=== PATIENT | male | born 1950 | race Caucasian/White ===

== ENCOUNTER 2023-06-26 11:00 | Inpatient (IN) | payer BC, MEDICARE ==
[2023-06-26] MEDS ORDERED: SODIUM CHLORIDE 0.9% 1,000 ML IV ONE (12:08)
[2023-06-26] MEDS ORDERED: ALPRAZolam 0.5 MG TAB PO PRN (12:41)
[2023-06-26] MEDS ORDERED: ASPIRIN 325 MG TAB PO STA (12:41)
[2023-06-26] MEDS ORDERED: NITROGLYCERIN SL TABS 0.4 MG TAB SUBLINGUAL PRN (12:41)
[2023-06-26] MEDS ORDERED: ALPRAZolam 0.25 MG TAB PO PRN ×2 (12:41→14:25)
[2023-06-26] MEDS ORDERED: SODIUM CHLORIDE 0.9% 1,000 ML in EMPTY BAG 1 BAG IV SCH (12:45)
[2023-06-26] MEDS ORDERED: HEPARIN SODIUM 1,000 UN/ML (10ML VL) ONE (12:51)
[2023-06-26] MEDS ORDERED: fentaNYL (PF) 50 MCG/ML 2 ML AMP ONE (12:51)
[2023-06-26] MEDS ORDERED: VERAPAMIL 2.5 MG/ML 2 ML AMP ONE (12:54)
[2023-06-26] MEDS: MIDAZOLAM 2 MG/2 ML VIAL IVP ONE ×2 (13:05→13:22)
[2023-06-26] MEDS: fentaNYL (PF) 50 MCG/ML 2 ML AMP IVP ONE ×2 (13:05→13:22)
[2023-06-26] MEDS ORDERED: LIDOCAINE 1% INJ 10MG/ML (5 ML VIAL-PF) SQ ONE (13:13)
[2023-06-26] MEDS ORDERED: VERAPAMIL SYRINGE (5 MG/10 ML) INTRAARTER ONE (13:15)
[2023-06-26] MEDS: HEPARIN SODIUM 1,000 UN/ML (10ML VL) IVP ONE ×3 (13:17→13:43)
[2023-06-26] MEDS ORDERED: TICAGRELOR 90 MG TAB ONE (13:27)
[2023-06-26] MEDS ORDERED: TICAGRELOR 90 MG TAB PO ONE (13:35)
[2023-06-26] MEDS ORDERED: IOPAMIDOL-370 100ML BTL INJ ONE ×2 (13:41→13:52)
[2023-06-26] MEDS ORDERED: ATROPINE SULFATE 0.1 MG/ML 10ML SYRINGE IV PRN (14:28)
[2023-06-26] MEDS ORDERED: RX INFO: IV CONTRAST WAS GIVEN 1 EACH MISC MISCELLANE PRN (14:28)
[2023-06-26] MEDS ORDERED: MAG HYDROX/AL HYDROX/SIMETH 30 ML CUP PO PRN (14:28)
[2023-06-26] MEDS ORDERED: ZOLPIDEM 5 MG TAB PO PRN (14:28)
[2023-06-26] MEDS ORDERED: BRIMONIDINE TARTRATE 0.2% DROPS 5 ML BTL BOTH EYES SCH (16:00)
[2023-06-26] MEDS ORDERED: traMADol 50 MG TAB PO PRN (16:50)
[2023-06-26] MEDS: BRIMONIDINE TARTRATE 0.2% DROPS 5 ML BTL BOTH EYES SCH (20:02)
[2023-06-26] MEDS: TICAGRELOR 90 MG TAB PO SCH (20:03)
--- NOTE | 2023-06-26 20:11 | P.PRCINT ---
Percutaneous Coronary Int. - Percutaneous Coronary Intervention Percutaneous Coronary Intervention: PROCEDURES PERFORMED: Left coronary angiography, intracoronary nitroglycerin, PCI proximal LAD with a 3.5 x 23mm Xience SUSHMA, post dilated with a 4.0 NC balloon, IVUS LAD INDICATION: Unstable angina, abnormal EKG HPI: Patient was admitted to [facility] with chest pain and underwent diagnostic LHC from a right radial approach showing 99% LAD as well as long area of PDA disease. He was hesitant about any bypass as well as initially any PCI however after discussion of risks and benefits, he was agreeable to PCI LAD. CONSENT:I have discussed the risks, benefits and alternative therapies for the above-mentioned procedure and for both sedation/analgesia as well as necessary blood product administration, if indicated, as they pertain to this patient. The patient has indicated understanding and acceptance of the risks and procedures discussed. PROCEDURE: After the risks, benefits and alternatives of the above mentioned procedure explained in detail with the patient, informed consent was obtained. Patient was taken to the catheterization lab and prepped and draped in usual fashion. 1% lidocaine was used to anesthetize the left radial artery. A 6- Moldovan sheath was placed in the left radial artery using modified Seldinger technique. The decision was made to perform PCI of the LAD. A 6Fr CLS 3.5 guide catheter was used to engage the left main. A 0.014 BMW wire was advanced into the distal LAD. Predilation was performed with a 2.5 x 12 then 3.0 x 12 NC balloon. IVUS was performed which showed diffuse disease with reference vessel distally 3.25- 3.5 however diffuse heavy calcification with very small landing zone of "normal" area. Therefore the decision was made to place a 3.5 x 23mm Xience SUSHMA from the origin to proximal LAD. The proximal portion was post dilated with a 4.0 NC balloon. Repeat IVUS showed excellent stent expansion, no dissection. Final angiograms were performed. Preintervention there was 99% stenosis with JASMIN 2 flow and post intervention there was 0% stenosis and JASMIN 3 flow. The left radial sheath was removed and a TR band was placed with hemostasis achieved. The patient tolerated the procedure well. Patient was transported back to the post catheterization holding area in stable condition. Conscious Sedation: Patient was monitored under the direct supervision of myself for conscious sedation using Versed and fentanyl for a total duration of 34 minutes HEMODYNAMICS: Aorta: 127/67 SELECTIVE CORONARY ARTERIOGRAPHY: LEFT MAIN: The left main is a large caliber vessel which trifurcates into the LAD, ramus and circumflex. There is no significant stenosis. LEFT ANTERIOR DESCENDING CORONARY ARTERY: LAD is a large caliber vessel which wraps around to the apex. There is a proximal LAD 99% stenosis followed by diffuse 30-50% stenosis of most of the remainder of the vessel. RAMUS INTERMEDIUS: The ramus is a small caliber vessel without significant stenosis. LEFT CIRCUMFLEX CORONARY ARTERY: Left circumflex is a moderate caliber vessel. There is mild 30-40% stenosis of the proximal and mid circumflex. RIGHT CORONARY ARTERY: The right coronary artery was not imaged however known to have 60-70% proximal RCA stenosis and 95% PDA stenosis. FINAL IMPRESSION: 1. CAD as described above including 99% proximal LAD, 30-50% mid LAD, 30-40% circumflex, 60-70% proximal RCA and 95% PDA stenosis 2. S/p PCI proximal LAD with a 3.5 x 23mm Xience SUSHMA, post dilated with a 4.0 NC balloon PLAN: 1. Aggressive risk factor modification per most recent ACC/AHA guidelines. 2. Continue dual antiplatelets for 12 months with aspirin and Brillinta 3. If still having angina type symptoms, may consider PCI PDA and further functional assessment of proximal RCA.
[2023-06-26] MEDS ORDERED: LATANOPROST 0.005% OPHTH DROPS 2.5 ML BTL BOTH EYES SCH (21:00)
[2023-06-26] MEDS ORDERED: traMADol 50 MG TAB PO SCH (21:00)
[2023-06-27] MEDS ORDERED: PANTOPRAZOLE 40 MG TABLET PO SCH (07:30)
[2023-06-27 07:58] LABS: Basophils % (A) 0 %; Eosinophils # (A) 0.5 k/uL (0-0.7); Eosinophils % (A) 5 %; HCT 44.6 % (39.0-53.0); HGB 15.1 gm/dL (13.0-17.5); Lymphocytes # (A) 1.1 k/uL (1.0-4.8); Lymphocytes % (A) 12 %; MCH 31.1 pg (25.0-35.0); MCHC 33.9 g/dL (31.0-37.0); Mean Platelet Volume 7.5; Monocytes # (A) 0.6 k/uL (0-1.0); Monocytes % (A) 7 %; Neutrophils # (A) 6.6 k/uL (1.3-7.7); Neutrophils % (A) 74 %; Platelet Count 172 k/uL (150-450); RBC 4.84 m/uL (4.30-5.90); RDW 11.9 % (11.5-15.5)
[2023-06-27 08:00] LABS: African American GFR (CKD) >90 (>60 ml/min/1.73 sqM); Anion Gap 7 mmol/L; Blood Urea Nitrogen 13 mg/dL (9-20); Calcium 9.3 mg/dL (8.4-10.2); Carbon Dioxide 26 mmol/L (22-30); Chloride 107 mmol/L (98-107); Glucose 99 mg/dL (74-99); Non-African American GFR(CKD) 85 (>60 ml/min/1.73 sqM); Potassium 4.1 mmol/L (3.5-5.1); Sodium 140 mmol/L (137-145)
[2023-06-27] MEDS: TICAGRELOR 90 MG TAB PO SCH (08:21)
[2023-06-27] MEDS: BRIMONIDINE TARTRATE 0.2% DROPS 5 ML BTL BOTH EYES SCH (08:22)
[2023-06-27 08:36] VITALS: RESP 20; TEMP 98.1
[2023-06-27] MEDS ORDERED: LATANOPROST 0.005% OPHTH DROPS 2.5 ML BTL RIGHT EYE SCH (09:00)
[2023-06-27] MEDS ORDERED: LOSARTAN 25 MG TAB PO SCH (09:00)
[2023-06-27] MEDS ORDERED: METOPROLOL SUCCINATE (ER) 25 MG TAB.ER.24H PO SCH (09:00)
[2023-06-27] MEDS ORDERED: FENOFIBRATE 160 MG TAB PO SCH (09:00)
[2023-06-27] MEDS ORDERED: TAMSULOSIN 0.4 MG CAP.ER.24H PO SCH (09:00)
[2023-06-27] MEDS ORDERED: ASPIRIN 81 MG PO SCH (09:00)
[2023-06-27] MEDS ORDERED: MELOXICAM 7.5 MG TAB PO SCH (09:00)
[2023-06-27 11:25] VITALS: BP 141/77; PULSE 63
--- NOTE | 2023-06-27 12:53 | P.DS ---
Providers Date of admission: 06/26/23 11:10 Attending physician: Song Galindo DO Consults: 06/26/23 14:28 Consult Physician Routine Consulting Provider: [facility] Consult Reason/Comments: Post Interventional Patient Do you want consulting provider notified?: Already Contacted Primary care physician: Song Galindo DO Hospital Course: This is a 73-year-old male who underwent stenting of the LAD by Dr. Galindo on 06/26/2023. Echocardiogram completed revealing ejection fraction 55-60%. The patient is doing well postprocedure with no immediate complications. He remains on dual antiplatelet therapy and high intensity statin. Patient was deemed stable for discharge home today from a cardiac standpoint. Please see EMR for further hospital course details. Discharge Diagnosis 1. Chest pain, status post cardiac catheterization with PCI to LAD Nurse practitioner note has been reviewed by physician. Signing provider agrees with the documented findings, assessment, and plan of care. Plan - Discharge Summary Discharge Rx Participant: No New Discharge Prescriptions: New Ticagrelor [Brilinta] 90 mg PO BID #180 tab Metoprolol Succinate (ER) [Toprol XL] 25 mg PO DAILY #90 tab Atorvastatin [Lipitor] 80 mg PO HS #90 tab Nitroglycerin Sl Tabs [Nitrostat] 0.4 mg SUBLINGUAL Q5M PRN #100 tab PRN Reason: Chest Pain Continue Losartan [Cozaar] 25 mg PO DAILY Fenofibrate 160 mg PO MOWEFR Aspirin EC [Ecotrin Low Dose] 81 mg PO DAILY No Action traMADol HCl [Ultram] 50 mg PO BID PRN PRN Reason: Pain rOPINIRole HCL [Requip] 1 mg PO BID@1800,2100 Brimonidine Tartrate [Alphagan P 0.15% Ophth Soln] 1 drop BOTH EYES BID Latanoprost [Latanoprost 0.005%] 1 drop BOTH EYES HS ALPRAZolam [Xanax] 0.25 mg PO BID PRN PRN Reason: Anxiety Tamsulosin [Flomax] 0.4 mg PO DAILY Omeprazole 20 mg PO DAILY Tacrolimus [Tacrolimus 0.1%] 1 applic TOPICAL BID Celecoxib [CeleBREX] 200 mg PO DAILY Discharge Medication List ALPRAZolam [Xanax] 0.25 mg PO BID PRN 06/26/23 [History] Aspirin EC [Ecotrin Low Dose] 81 mg PO DAILY 06/26/23 [History] Brimonidine Tartrate [Alphagan P 0.15% Ophth Soln] 1 drop BOTH EYES BID 06/26/23 [History] Celecoxib [CeleBREX] 200 mg PO DAILY 06/26/23 [History] Fenofibrate 160 mg PO MOWEFR 06/26/23 [History] Latanoprost [Latanoprost 0.005%] 1 drop BOTH EYES HS 06/26/23 [History] Losartan [Cozaar] 25 mg PO DAILY 06/26/23 [History] Omeprazole 20 mg PO DAILY 06/26/23 [History] Tacrolimus [Tacrolimus 0.1%] 1 applic TOPICAL BID 06/26/23 [History] Tamsulosin [Flomax] 0.4 mg PO DAILY 06/26/23 [History] rOPINIRole HCL [Requip] 1 mg PO BID@1800,2100 06/26/23 [History] traMADol HCl [Ultram] 50 mg PO BID PRN 06/26/23 [History] Atorvastatin [Lipitor] 80 mg PO HS #90 tab 06/27/23 [Rx] Metoprolol Succinate (ER) [Toprol XL] 25 mg PO DAILY #90 tab 06/27/23 [Rx] Nitroglycerin Sl Tabs [Nitrostat] 0.4 mg SUBLINGUAL Q5M PRN #100 tab 06/27/23 [Rx] Ticagrelor [Brilinta] 90 mg PO BID #180 tab 06/27/23 [Rx] Follow up Appointment(s)/Referral(s): Vito Raza MD [Medical Doctor] - 07/04/23 2:30 pm Patient Instructions/Handouts: Heart Catheterization (DC) Discharge Disposition: HOME WITH HOME HEALTH SERVICES
[2023-06-28] MEDS ORDERED: FENOFIBRATE 160 MG TAB PO SCH (09:00)
== END 2023-06-27 11:58 | disposition home health service (06) | DRG 247 ==
LOC: 3SCARD 11:10
PROVIDERS: ADMIT Internal Medicine; ATTEND Internal Medicine
PROC: 027034Z Dilation of Coronary Artery, One Artery with Drug-eluting Intraluminal Device, Percutaneous Approach (ICD-10-PCS; principal; 2023-06-26 17:25)
PROC: 4A023N7 Measurement of Cardiac Sampling and Pressure, Left Heart, Percutaneous Approach (ICD-10-PCS; principal; 2023-06-26 17:25)
PROC: B2111ZZ Fluoroscopy of Multiple Coronary Arteries using Low Osmolar Contrast (ICD-10-PCS; principal; 2023-06-26 17:25)
DX: I25.10 Atherosclerotic heart disease of native coronary artery without angina pectoris (principal); I25.110 Atherosclerotic heart disease of native coronary artery with unstable angina pectoris; I10 Essential (primary) hypertension; E78.5 Hyperlipidemia, unspecified; G47.30 Sleep apnea, unspecified; Z79.82 Long term (current) use of aspirin; Z79.899 Other long term (current) drug therapy; Z87.01 Personal history of pneumonia (recurrent); G56.03 Carpal tunnel syndrome, bilateral upper limbs; H40.9 Unspecified glaucoma; I25.2 Old myocardial infarction; Z87.442 Personal history of urinary calculi
CPT/HCPCS: 80048; 85025; 92978

== ENCOUNTER 2023-11-28 13:01 | Emergency (ER) | payer MEDICARE ==
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
[2023-11-28] MEDS: KETOROLAC 15 MG/ML 1 ML VIAL IM STA (13:21)
[2023-11-28 13:47] VITALS: RESP 18
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
[2023-11-28 15:26] VITALS: BP 115/73; PULSE 72; TEMP 97.6
== END 2023-11-28 15:11 | disposition home or self-care (01) ==
LOC: EC 13:01
DX: S46.001A Unspecified injury of muscle(s) and tendon(s) of the rotator cuff of right shoulder, initial encounter (principal); M66.9 Spontaneous rupture of unspecified tendon; I10 Essential (primary) hypertension; Z79.82 Long term (current) use of aspirin; Z79.899 Other long term (current) drug therapy; Z88.5 Allergy status to narcotic agent; V89.2XXA Person injured in unspecified motor-vehicle accident, traffic, initial encounter; Y92.410 Unspecified street and highway as the place of occurrence of the external cause
CPT/HCPCS: 73030; 99283; 96372; J1885

== ENCOUNTER 2023-12-10 16:38 | Emergency (ER) | payer MEDICARE ==
--- NOTE | 2023-12-10 17:21 | ED ---
Recheck HPI - General Chief Complaint: Recheck/Abnormal Lab/Rx Stated Complaint: ABD Pain, Weakness, Constipation Time Seen by Provider: 12/10/23 16:47 Source: patient, RN notes reviewed, old records reviewed Mode of arrival: wheelchair Limitations: no limitations - History of Present Illness Initial Comments: This is a 73-year-old male to the ER for evaluation of severe pain generalized body aches and pains abdominal pain back pain inability urinate. Patient is unable provide history secondary to levels of discomfort patient is in severe distress on arrival in the ER MD Complaint: abnormal lab Returns Today for: persistent/worsening pain related to initial visit Symptoms Since Prior Visit: worsening pain Associated Symptoms: none Treatments Prior to Arrival: Given Pain Meds on, other - Related Data Home Medications Medication Instructions Recorded Confirmed ALPRAZolam [Xanax] 0.25 mg PO BID PRN 06/26/23 06/26/23 Aspirin EC [Ecotrin Low Dose] 81 mg PO DAILY 06/26/23 06/26/23 Brimonidine Tartrate [Alphagan P 1 drop BOTH EYES BID 06/26/23 06/26/23 0.15% Ophth Soln] Celecoxib [CeleBREX] 200 mg PO DAILY 06/26/23 06/26/23 Fenofibrate 160 mg PO MOWEFR 06/26/23 06/26/23 Latanoprost [Latanoprost 0.005%] 1 drop BOTH EYES HS 06/26/23 06/26/23 Losartan [Cozaar] 25 mg PO DAILY 06/26/23 06/26/23 Omeprazole 20 mg PO DAILY 06/26/23 06/26/23 Tacrolimus [Tacrolimus 0.1%] 1 applic TOPICAL BID 06/26/23 06/26/23 Tamsulosin [Flomax] 0.4 mg PO DAILY 06/26/23 06/26/23 rOPINIRole HCL [Requip] 1 mg PO BID@1800,2100 06/26/23 06/26/23 traMADol HCl [Ultram] 50 mg PO BID PRN 06/26/23 06/26/23 Previous Rx's Medication Instructions Recorded Atorvastatin [Lipitor] 80 mg PO HS #90 tab 06/27/23 Metoprolol Succinate (ER) [Toprol 25 mg PO DAILY #90 tab 06/27/23 XL] Nitroglycerin Sl Tabs [Nitrostat] 0.4 mg SUBLINGUAL Q5M PRN #100 tab 06/27/23 Ticagrelor [Brilinta] 90 mg PO BID #180 tab 06/27/23 polyethylene glycoL 3350 [Miralax] 17 gm PO DAILY #14 packet 12/10/23 Allergies Allergy/AdvReac Type Severity Reaction Status Date / Time codeine AdvReac Nausea Verified 12/10/23 16:45 morphine AdvReac Nausea Verified 12/10/23 16:45 Review of Systems ROS Statement: Those systems with pertinent positive or pertinent negative responses have been documented in the HPI. ROS Other: All systems not noted in ROS Statement are negative. Past Medical History Past Medical History: Eye Disorder, Hyperlipidemia, Hypertension Additional Past Medical History / Comment(s): Tinnitis, restless leg syndrome History of Any Multi-Drug Resistant Organisms: None Reported Past Surgical History: Orthopedic Surgery Past Anesthesia/Blood Transfusion Reactions: No Reported Reaction Past Psychological History: No Psychological Hx Reported Smoking Status: Never smoker General Exam Limitations: no limitations General appearance: alert, in no apparent distress, anxious Head exam: Present: atraumatic, normocephalic, normal inspection Eye exam: Present: normal appearance, PERRL, EOMI. Absent: scleral icterus, conjunctival injection, periorbital swelling ENT exam: Present: normal exam, mucous membranes moist Neck exam: Present: normal inspection. Absent: tenderness, meningismus, lymphadenopathy Respiratory exam: Present: normal lung sounds bilaterally. Absent: respiratory distress, wheezes, rales, rhonchi, stridor Cardiovascular Exam: Present: regular rate, normal rhythm, normal heart sounds. Absent: systolic murmur, diastolic murmur, rubs, gallop, clicks GI/Abdominal exam: Present: soft, normal bowel sounds. Absent: distended, tenderness, guarding, rebound, rigid Extremities exam: Present: normal inspection, full ROM, normal capillary refill. Absent: tenderness, pedal edema, joint swelling, calf tenderness Back exam: Present: normal inspection Neurological exam: Present: alert, oriented X3, CN II-XII intact Psychiatric exam: Present: normal affect, normal mood Skin exam: Present: warm, dry, intact, normal color. Absent: rash Course Vital Signs 12/10/23 12/10/23 12/10/23 16:44 18:41 20:00 Temperature 98.2 F Pulse Rate 78 90 98 Respiratory 18 20 18 Rate Blood Pressure 161/80 130/70 132/78 O2 Sat by Pulse 97 99 98 Oximetry 12/10/23 23:59 Temperature 98.3 F Pulse Rate 93 Respiratory 18 Rate Blood Pressure 121/90 O2 Sat by Pulse 96 Oximetry - Reevaluation(s) Reevaluation #1: 12/10/23 18:24 Medical records reviewed Reevaluation #2: Patient symptoms are improved here in the ER Reevaluation #3: Patient informed of results and questions answered Reevaluation #4: Was pt. sent in by a medical professional or institution (, JONNA, [employer], urgent care, hospital, or senior living...) When possible be specific @ -no Did you speak to anyone other than the patient for history (EMS, parent, family, police, friend...)? What history was obtained from this source @ -no Did you review nursing and triage notes (agree or disagree)? Why? @ -agree Are old charts reviewed (outside hosp., previous admission, EMS record, old EKG, old radiological studies, urgent care reports/EKG's, senior living records)? Report findings @ -yes Differential Diagnosis (chest pain, altered mental status, abdominal pain women, abdominal pain men, vaginal bleeding, weakness, fever, dyspnea, syncope, headache, dizziness, GI bleed, back pain, seizure, CVA, palpatations, mental health, musculoskeletal)? @ -prior EKG interpreted by me (3pts min.). @ -yes X-rays interpreted by me (1pt min.). @ -No CT interpreted by me (1pt min.). @ -yes negative for acute disease U/S interpreted by me (1pt. min.). @ -no What testing was considered but not performed or refused? (CT, X-rays, U/S, labs)? Why? @ -none What meds were considered but not given or refused? Why? @ -none Did you discuss the management of the patient with other professionals (professionals i.e. JONNA [place], [employer], lab, RT, psych nurse, social media marketing analyst, tank charger, teacher, global safety officer, case management coordinator)? Give summary @ -no Was smoking cessation discussed for >3mins.? @ -no Was critical care preformed (if so, how long)? @ -no Were there social determinants of health that impacted care today? How? ( Homelessness, low income, unemployed, alcoholism, drug addiction, transportation, low edu. Level, literacy, decrease access to med. care, care home, rehab)? @ -none Was there de-escalation of care discussed even if they declined (Discuss DNR or withdrawal of care, Hospice)? DNR status @ -no What co-morbidities impacted this encounter? (DM, HTN, Smoking, COPD, CAD, Cancer, CVA, ARF, Chemo, Hep., AIDS, mental health diagnosis, sleep apnea, morbid obesity)? @ -none Was patient admitted / discharged? Hospital course, mention meds given and route, prescriptions, significant lab abnormalities, going to OR and other pertinent info. @ - 73 male to ER with severe constipation and rectal impaction here in the ER, patient's rectal impaction was resolved and patient can be discharged home Discharge Undiagnosed new problem with uncertain prognosis? @ -no Drug Therapy requiring intensive monitoring for toxicity (Heparin, Nitro, Insulin, Cardizem)? @ -no Were any procedures done? @ -no Diagnosis/symptom? @ -Abdominal pain with rectal impaction resolved Acute, or Chronic, or Acute on Chronic? @ -Acute Uncomplicated (without systemic symptoms) or Complicated (systemic symptoms)? @ -Complicated Side effects of treatment? @ -no Exacerbation, Progression, or Severe Exacerbation? @ -exacerbation Poses a threat to life or bodily function? How? (Chest pain, USA, VA, pneumonia, PE, COPD, DKA, ARF, appy, cholecystitis, CVA, Diverticulitis, Homicidal, Suicidal, threat to staff... and all critical care pts) @ -yes negative for acute disease Reevaluation #5: Differential Weakness: Hypoglycemia, shock, sepsis, hyponatremia, anemia, infection, VA, ETOH, adverse medicine reaction, overdose, stroke, this is not meant to be an all-inclusive list. Procedures - Rectal Disimpaction Consent Obtained: verbal consent Indication: fecal impaction Procedural Sedation: Yes Sedation/Analgesia: none Technique: manual disimpaction with gloved finger Result: significant stool output Complications: none Patient Tolerated Procedure: well Medical Decision Making - Medical Decision Making 73 male to ER with severe constipation and rectal impaction here in the ER, patient's rectal impaction was resolved and patient can be discharged home - Lab Data Result diagrams: 12/10/23 17:57 12/10/23 17:57 Lab Results 12/10/23 12/10/23 12/10/23 Range/Units 17:57 17:57 17:57 WBC 12.7 H (3.8-10.6) k/uL RBC 5.36 (4.30-5.90) m/uL Hgb 17.0 (13.0-17.5) gm/dL Hct 48.5 (39.0-53.0) % MCV 90.4 (80.0-100.0) fL MCH 31.7 (25.0-35.0) pg MCHC 35.0 (31.0-37.0) g/dL RDW 12.3 (11.5-15.5) % Plt Count 238 (150-450) k/uL MPV 8.4 Neutrophils % 78 % Lymphocytes % 12 % Monocytes % 7 % Eosinophils % 1 % Basophils % 0 % Neutrophils # 10.0 H (1.3-7.7) k/uL Lymphocytes # 1.5 (1.0-4.8) k/uL Monocytes # 0.9 (0-1.0) k/uL Eosinophils # 0.1 (0-0.7) k/uL Basophils # 0.0 (0-0.2) k/uL PT 13.0 H (10.0-12.5) sec INR 1.2 H (<1.2) APTT 26.2 (22.0-30.0) sec Sodium (137-145) mmol/L Potassium (3.5-5.1) mmol/L Chloride (98-107) mmol/L Carbon Dioxide (22-30) mmol/L Anion Gap mmol/L BUN (9-20) mg/dL Creatinine (0.66-1.25) mg/dL Est GFR (CKD-EPI)AfAm (>60 ml/min/1.73 sqM) Est GFR (CKD-EPI)NonAf (>60 ml/min/1.73 sqM) Glucose (74-99) mg/dL Lactic Ac Sepsis Rflx Plasma Lactic Acid Abdulaziz (0.7-2.0) mmol/L Calcium (8.4-10.2) mg/dL Total Bilirubin (0.2-1.3) mg/dL AST (17-59) U/L ALT (4-49) U/L Alkaline Phosphatase (38-126) U/L Total Protein (6.3-8.2) g/dL Albumin (3.5-5.0) g/dL Amylase (30-110) U/L Lipase (23-300) U/L Urine Color Colorless Urine Appearance Clear (Clear) Urine pH 8.0 (5.0-8.0) Ur Specific Jeff 1.010 (1.001-1.035) Urine Protein Negative (Negative) Urine Glucose (UA) 4+ H (Negative) Urine Ketones Negative (Negative) Urine Blood Moderate H (Negative) Urine Nitrite Negative (Negative) Urine Bilirubin Negative (Negative) Urine Urobilinogen <2.0 (<2.0) mg/dL Ur Leukocyte Esterase Negative (Negative) Urine RBC 18 H (0-5) /hpf Urine WBC 1 (0-5) /hpf 12/10/23 12/10/23 12/10/23 Range/Units 17:57 17:57 18:43 WBC (3.8-10.6) k/uL RBC (4.30-5.90) m/uL Hgb (13.0-17.5) gm/dL Hct (39.0-53.0) % MCV (80.0-100.0) fL MCH (25.0-35.0) pg MCHC (31.0-37.0) g/dL RDW (11.5-15.5) % Plt Count (150-450) k/uL MPV Neutrophils % % Lymphocytes % % Monocytes % % Eosinophils % % Basophils % % Neutrophils # (1.3-7.7) k/uL Lymphocytes # (1.0-4.8) k/uL Monocytes # (0-1.0) k/uL Eosinophils # (0-0.7) k/uL Basophils # (0-0.2) k/uL PT (10.0-12.5) sec INR (<1.2) APTT (22.0-30.0) sec Sodium 138 (137-145) mmol/L Potassium 3.8 (3.5-5.1) mmol/L Chloride 102 (98-107) mmol/L Carbon Dioxide 21 L (22-30) mmol/L Anion Gap 15 mmol/L BUN 16 (9-20) mg/dL Creatinine 0.82 (0.66-1.25) mg/dL Est GFR (CKD-EPI)AfAm >90 (>60 ml/min/1.73 sqM) Est GFR (CKD-EPI)NonAf 87 (>60 ml/min/1.73 sqM) Glucose 96 (74-99) mg/dL Lactic Ac Sepsis Rflx Y Plasma Lactic Acid Abdulaziz 4.6 H* (0.7-2.0) mmol/L Calcium 9.9 (8.4-10.2) mg/dL Total Bilirubin 1.4 H (0.2-1.3) mg/dL AST 48 (17-59) U/L ALT 39 (4-49) U/L Alkaline Phosphatase 81 (38-126) U/L Total Protein 7.2 (6.3-8.2) g/dL Albumin 4.8 (3.5-5.0) g/dL Amylase 125 H (30-110) U/L Lipase 91 (23-300) U/L Urine Color Urine Appearance (Clear) Urine pH (5.0-8.0) Ur Specific Jeff (1.001-1.035) Urine Protein (Negative) Urine Glucose (UA) (Negative) Urine Ketones (Negative) Urine Blood (Negative) Urine Nitrite (Negative) Urine Bilirubin (Negative) Urine Urobilinogen (<2.0) mg/dL Ur Leukocyte Esterase (Negative) Urine RBC (0-5) /hpf Urine WBC (0-5) /hpf 12/10/23 Range/Units 21:15 WBC (3.8-10.6) k/uL RBC (4.30-5.90) m/uL Hgb (13.0-17.5) gm/dL Hct (39.0-53.0) % MCV (80.0-100.0) fL MCH (25.0-35.0) pg MCHC (31.0-37.0) g/dL RDW (11.5-15.5) % Plt Count (150-450) k/uL MPV Neutrophils % % Lymphocytes % % Monocytes % % Eosinophils % % Basophils % % Neutrophils # (1.3-7.7) k/uL Lymphocytes # (1.0-4.8) k/uL Monocytes # (0-1.0) k/uL Eosinophils # (0-0.7) k/uL Basophils # (0-0.2) k/uL PT (10.0-12.5) sec INR (<1.2) APTT (22.0-30.0) sec Sodium (137-145) mmol/L Potassium (3.5-5.1) mmol/L Chloride (98-107) mmol/L Carbon Dioxide (22-30) mmol/L Anion Gap mmol/L BUN (9-20) mg/dL Creatinine (0.66-1.25) mg/dL Est GFR (CKD-EPI)AfAm (>60 ml/min/1.73 sqM) Est GFR (CKD-EPI)NonAf (>60 ml/min/1.73 sqM) Glucose (74-99) mg/dL Lactic Ac Sepsis Rflx Plasma Lactic Acid Abdulaziz 1.9 (0.7-2.0) mmol/L Calcium (8.4-10.2) mg/dL Total Bilirubin (0.2-1.3) mg/dL AST (17-59) U/L ALT (4-49) U/L Alkaline Phosphatase (38-126) U/L Total Protein (6.3-8.2) g/dL Albumin (3.5-5.0) g/dL Amylase (30-110) U/L Lipase (23-300) U/L Urine Color Urine Appearance (Clear) Urine pH (5.0-8.0) Ur Specific Jeff (1.001-1.035) Urine Protein (Negative) Urine Glucose (UA) (Negative) Urine Ketones (Negative) Urine Blood (Negative) Urine Nitrite (Negative) Urine Bilirubin (Negative) Urine Urobilinogen (<2.0) mg/dL Ur Leukocyte Esterase (Negative) Urine RBC (0-5) /hpf Urine WBC (0-5) /hpf - EKG Data -: EKG Interpreted by Me (EKG is sinus 91 VT 166 QRS 109 QTc 449) - Radiology Data Radiology results: report reviewed (CT abdomen pelvis is positive for rectal impaction), image reviewed Disposition Clinical Impression: Constipation, Fecal impaction Disposition: HOME SELF-CARE Condition: Fair Instructions (If sedation given, give patient instructions): Constipation (ED), Fecal Impaction (ED) Prescriptions: polyethylene glycoL 3350 [Miralax] 17 gm PO DAILY #14 packet Is patient prescribed a controlled substance at d/c from ED?: No Referrals: Tee Zaldivar MD [Primary Care Provider] - 1-2 days Time of Disposition: 23:00
[2023-12-10] MEDS: ONDANSETRON 4 MG/2 ML VIAL IVP STA (18:00)
[2023-12-10] MEDS: SODIUM CHLORIDE 0.9% 1,000 ML IV STA ×3 (18:00→20:34)
[2023-12-10] MEDS: HYDROmorphone 1 MG/ML 1 ML SYRINGE IVP STA (18:02)
[2023-12-10 18:33] LABS: Basophils % (A) 0 %; Eosinophils # (A) 0.1 k/uL (0-0.7); Eosinophils % (A) 1 %; HCT 48.5 % (39.0-53.0); Lymphocytes # (A) 1.5 k/uL (1.0-4.8); Lymphocytes % (A) 12 %; MCH 31.7 pg (25.0-35.0); MCV 90.4 fL (80.0-100.0); Mean Platelet Volume 8.4; Monocytes # (A) 0.9 k/uL (0-1.0); Monocytes % (A) 7 %; Neutrophils % (A) 78 %; Platelet Count 238 k/uL (150-450); RBC 5.36 m/uL (4.30-5.90); RDW 12.3 % (11.5-15.5); WBC 12.7 k/uL (3.8-10.6)
[2023-12-10 18:37] LABS: Appearance,Urine Clear (Clear); Bilirubin,Urine Negative (Negative); Blood,Urine Moderate (Negative); Color,Urine Colorless; Glucose,Urine (UA) 4+ (Negative); Ketones,Urine Negative (Negative); Leukocyte Esterase,Urine Negative (Negative); Nitrite,Urine Negative (Negative); Protein,Urine Negative (Negative); RBC,Urine 18 /hpf (0-5); Urobilinogen,Urine <2.0 mg/dL (<2.0); WBC,Urine 1 /hpf (0-5)
[2023-12-10 18:45] LABS: ALT 39 U/L (4-49); African American GFR (CKD) >90 (>60 ml/min/1.73 sqM); Albumin 4.8 g/dL (3.5-5.0); Amylase 125 U/L (30-110); Anion Gap 15 mmol/L; Blood Urea Nitrogen 16 mg/dL (9-20); Calcium 9.9 mg/dL (8.4-10.2); Carbon Dioxide 21 mmol/L (22-30); Chloride 102 mmol/L (98-107); Glucose 96 mg/dL (74-99); Lipase 91 U/L (23-300); Non-African American GFR(CKD) 87 (>60 ml/min/1.73 sqM); Sodium 138 mmol/L (137-145); Total Bilirubin 1.4 mg/dL (0.2-1.3); Total Protein 7.2 g/dL (6.3-8.2)
[2023-12-10 18:46] LABS: AST 48 U/L (17-59); Potassium 3.8 mmol/L (3.5-5.1)
[2023-12-10 18:47] LABS: Alkaline Phosphatase 81 U/L (38-126)
[2023-12-10 19:08] LABS: INR 1.2 (<1.2); Partial Thromboplastin Time 26.2 sec (22.0-30.0)
--- NOTE | 2023-12-10 19:33 | CT ---
EXAMINATION TYPE: CT abdomen pelvis w con CT DLP: 899.1 mGycm, Automated exposure control for dose reduction was used. DATE OF EXAM: 12/10/2023 7:14 PM COMPARISON: CT abdomen pelvis most recent from 12/11/2011 CLINICAL INDICATION:Male, 73 years old with history of abdominal pain; pain TECHNIQUE: Axial CT of the abdomen and pelvis. Sagittal and coronal reformats were created on a [employer] workstation. Contrast used:100 ml mL of Isovue 300 with IV Contrast, (none if empty) Oral contrast used: without Oral Contrast (none if empty) FINDINGS: LOWER CHEST: Unremarkable ABDOMEN LIVER: There is interval enlargement of a right hepatic lobe cyst, now measuring 10.5 cm, additional multiple hepatic cysts are stable. GALLBLADDER AND BILE DUCTS: Cholelithiasis is identified PANCREAS: Few scattered microcalcifications are identified, likely sequela of chronic disease. SPLEEN: Unremarkable. ADRENAL GLANDS: Unremarkable. KIDNEYS AND URETERS: No evidence of hydronephrosis or renal calculus. The ureters are unremarkable. Bilateral renal cysts are appreciated. PELVIS BLADDER: Decompressed with Bhandari catheter present. REPRODUCTIVE: Prostatomegaly is identified. ABDOMEN & PELVIS STOMACH AND BOWEL: Stomach and duodenum are unremarkable. Fecaloma within the patient's rectum measur ing 7 cm in transverse diameter. Mild associated rectal wall thickening is identified. Scattered colo jeramy diverticula are present. The adjacent colon is prominent measuring up to 7 cm in diameter. The ap pendix is unremarkable. PERITONEUM/RETROPERITONEUM: No evidence of pneumoperitoneum or free fluid. VASCULATURE: Mild atherosclerotic calcifications are present throughout the abdominal aorta and its b ranches. No evidence of aortic aneurysm. MUSCULOSKELETAL: No acute osseous abnormalities. Mild disc degeneration changes are present throughou t the thoracolumbar spine. LYMPH NODES: Prominent nonenlarged mesenteric lymph nodes are identified. SOFT TISSUE/ABDOMINAL WALL: Unremarkable IMPRESSION: 1. Fecaloma within the patient's rectum with associated mild rectal wall thickening. Correlate with signs/symptoms of stercoral colitis. 2. Prominent ascending colon, this can be reactive to impression #1. 3. Colonic diverticulosis. 4. Cholelithiasis. 5. Interval enlargement of a now 10.5 cm simple appearing hepatic cyst.
[2023-12-10] MEDS: SENNOSIDES-DOCUSATE SODIUM 1 EACH TAB PO STA (20:35)
[2023-12-10] MEDS: DICYCLOMINE 10 MG/ML 2 ML AMP IM STA (20:36)
[2023-12-10 21:06] VITALS: RESP 18
[2023-12-10] MEDS: LORazepam 2 MG/ML INJ IV STA (22:25)
[2023-12-10] MEDS: SODIUM CHLORIDE 0.9% 500 ML 500 ML IV STA (22:51)
[2023-12-10] MEDS: KETOROLAC 15 MG/ML 1 ML VIAL IVP STA (22:52)
[2023-12-11 00:20] VITALS: BP 121/90; PULSE 93; TEMP 98.3
== END 2023-12-11 00:05 | disposition home or self-care (01) ==
LOC: EC 16:38
DX: K56.41 Fecal impaction (principal); K57.30 Diverticulosis of large intestine without perforation or abscess without bleeding; K76.89 Other specified diseases of liver; K80.20 Calculus of gallbladder without cholecystitis without obstruction; I10 Essential (primary) hypertension; E78.5 Hyperlipidemia, unspecified; Z79.899 Other long term (current) drug therapy; Z88.5 Allergy status to narcotic agent; Z79.82 Long term (current) use of aspirin
CPT/HCPCS: 36415; 80053; 82150; 83605; 83690; 85025; 85610; 85730; 81001; 74177; 99285; 96372; 96374; 96375 ×2; 96361 ×6; J0500; J2405; J1170; J1885; Q9967; 93005

== ENCOUNTER → 2024-01-16 | Outpatient (CLI) | payer MEDICARE ==
--- NOTE | 2024-01-16 12:31 | MR ---
EXAMINATION TYPE: MR shoulder RT wo con DATE OF EXAM: 01/16/2024 COMPARISON: None HISTORY: Pain TECHNIQUE: Multiplanar, multisequence imaging of the right shoulder is performed without contrast. FINDINGS: There is no bone contusion or fracture. There is moderate to marked osteoarthritic change of the AC joint resulting in mild shoulder impingem ent There is a large glenohumeral joint effusion and there is some acromial and subdeltoid bursitis. There are chronic complete rotator cuff tears involving the infraspinatus, supraspinatus and subscapu shon tendons with retraction medially. The biceps tendon is dislocated medially but the biceps anchor is intact and there is no evidence of SLAP lesion there is marked thickening of the joint capsule IMPRESSION: 1. Chronic full-thickness rotator cuff tears with retraction medially of the infraspinatus, supraspin atus and subscapularis tendons. 2. Moderate to marked osteophytic change of the AC joint. 3. Large glenohumeral joint effusion and subacromial and subdeltoid bursitis. 4. dislocation of the biceps tendon medially. No evidence of a SLAP lesion. 5. No bone contusion or fracture.
== END | disposition home or self-care (01) ==
LOC: RADMRIMAIN 07:06
PROVIDERS: ATTEND Orthopaedic Surgery
DX: M75.121 Complete rotator cuff tear or rupture of right shoulder, not specified as traumatic (principal); S43.004A Unspecified dislocation of right shoulder joint, initial encounter; X58.XXXA Exposure to other specified factors, initial encounter

== ENCOUNTER → 2024-01-27 | Outpatient (CLI) | payer MEDICARE | END | disposition home or self-care (01) | LOC: LABPAT 11:06 | PROVIDERS: ATTEND Orthopaedic Surgery | DX: Z01.812 Encounter for preprocedural laboratory examination (principal); M75.121 Complete rotator cuff tear or rupture of right shoulder, not specified as traumatic; Z22.322 Carrier or suspected carrier of Methicillin resistant Staphylococcus aureus | CPT/HCPCS: 87070 ==

== ENCOUNTER → 2024-02-20 | Outpatient (CLI) | payer MEDICARE ==
[2024-02-20 14:24] LABS: Basophils # (A) 0.06 X 10*3/uL (0.00-0.10); Basophils % (A) 0.9 %; Eosinophils # (A) 0.56 X 10*3/uL (0.04-0.35); Eosinophils % (A) 8.5 %; HCT 47.6 % (39.6-50.0); HGB 15.7 g/dL (13.0-17.0); Lymphocytes # (A) 1.25 X 10*3/uL (0.90-5.00); MCH 30.3 pg (27.0-32.0); MCV 91.7 FL (80.0-97.0); Mean Platelet Volume 9.9 FL (9.5-12.2); Monocytes # (A) 0.57 X 10*3/uL (0.20-1.00); Monocytes % (A) 8.6 %; NRBC Per 100 WBC 0 X 10*3/uL (0.00-0.01); Neutrophils % (A) 62.2 %; Platelet Count 144 X 10*3/uL (140-440); RBC 5.19 X 10*6/uL (4.40-5.60); WBC 6.59 X 10*3/uL (4.50-10.00)
[2024-02-20 15:32] LABS: INR 1.22 sec (0.93-1.11)
[2024-02-20 15:58] LABS: Blood Urea Nitrogen 15.2 mg/dL (9.0-27.0); Calcium 9.4 mg/dL (8.7-10.3); Carbon Dioxide 25.3 mmol/L (21.6-31.8); Chloride 105 mmol/L (96-109); Glucose 111 mg/dL (70-110); Potassium 4.5 mmol/L (3.5-5.5); Sodium 143 mmol/L (135-145)
== END | disposition home or self-care (01) ==
LOC: LABWHC1 10:56
PROVIDERS: ATTEND Nurse Practitioner Family
DX: Z01.812 Encounter for preprocedural laboratory examination (principal); I25.119 Atherosclerotic heart disease of native coronary artery with unspecified angina pectoris
CPT/HCPCS: 36415; 80048; 85025; 85610

== ENCOUNTER 2024-03-10 05:40 | Day surgery (SDC) | payer MEDICARE ==
[2024-03-06 08:50] VITALS: BMI 25.8
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
[~2024-03-10 05:40] MED LIST: TRANEXAMIC 1,000 MG/100ML-NACL 1,000 MG in SALINE 1 100ML.BAG IVPB PRN
[2024-03-10] MEDS: IV FLUID CONTINUATION 1,000 ML IV ONE ×2 (06:30→08:59)
[2024-03-10] MEDS: LACTATED RINGERS 1,000 ML IV SCH (06:30)
[2024-03-10] MEDS: ACETAMINOPHEN TAB 500 MG TAB PO PRN (06:44)
[2024-03-10] MEDS: MELOXICAM 7.5 MG TAB PO PRN (06:44)
[2024-03-10] MEDS: ONDANSETRON 4 MG/2 ML VIAL IVP ONE (06:48)
[2024-03-10] MEDS: DEXAMETHASONE SOD PHOSPHATE 4 MG/ML 1 ML VIAL IV ONE (06:48)
[2024-03-10] MEDS: LIDOCAINE 1% (10MG/ML) FOR IV START INTRADERMA ONE (06:50)
[2024-03-10 06:56] LABS: Glucose,Whole Blood 86 mg/dL (70-110)
[2024-03-10] MEDS ORDERED: fentaNYL (PF) 50 MCG/ML 2 ML AMP IV PRN (07:00)
[2024-03-10 07:04] LABS: INR 1.2 (<1.2); Prothrombin Time 13.2 sec (10.0-12.5)
[2024-03-10] MEDS: MIDAZOLAM 2 MG/2 ML VIAL IVP ONE (07:06)
[2024-03-10] MEDS: VANCOMYCIN 1,250 MG in SODIUM CHLORIDE 0.9% 250 ML IVPB PRN (07:15)
[2024-03-10] MEDS ORDERED: NEOSTIGMINE 1 MG/ML 10 ML VIAL ONE (08:16)
[2024-03-10] MEDS ORDERED: ROCURONIUM 10 MG/ML (5 ML VIAL) IV ONE (08:16)
[2024-03-10] MEDS ORDERED: LIDOCAINE 1% INJ 10MG/ML (20 ML MDV) ONE (08:16)
[2024-03-10] MEDS ORDERED: ePHEDrine 50 MG/ML 1 ML VIAL ONE (08:16)
[2024-03-10] MEDS ORDERED: PHENYLEPHRINE-0.9% NACL SYG 1,000 MCG/10 ML SYRINGE ONE (08:16)
[2024-03-10] MEDS ORDERED: TRANEXAMIC 1,000 MG/100ML-NACL PREMIX BAG ONE (08:16)
[2024-03-10] MEDS ORDERED: PROPOFOL 10 MG/ML 20 ML VIAL IV ONE (08:16)
[2024-03-10] MEDS ORDERED: DEXAMETHASONE SOD PHOSPHATE 4 MG/ML 1 ML VIAL ONE (08:16)
[2024-03-10] MEDS ORDERED: SUCCINYLCHOLINE CHLORIDE 200 MG/10 ML VIAL IV ONE (08:16)
[2024-03-10] MEDS ORDERED: GLYCOPYRROLATE 0.2 MG/ML 2 ML VIAL ONE (08:16)
[2024-03-10] MEDS ORDERED: ROPIVACAINE 5 MG/ML 30 ML VIAL ONE (08:16)
[2024-03-10] MEDS: ceFAZolin 1,000 MG in SODIUM CHLORIDE 0.9% 1,000 ML IRRIGATION ONE (08:47)
[2024-03-10] MEDS ORDERED: hydrOXYzine pamoate 25 MG CAP PO PRN (09:52)
[2024-03-10] MEDS ORDERED: HYDROmorphone 0.5 MG/0.5 ML SYRINGE IVP PRN (09:52)
--- NOTE | 2024-03-10 10:14 | P.OP ---
Date of Procedure: 03/10/24 Preoperative Diagnosis: Right retracted chronic rotator cuff tear/rotator cuff arthropathy Postoperative Diagnosis: Same Procedure(s) Performed: Right reverse total shoulder arthroplasty Implants: Depuy Corail size 12 press-fit humeral stem, size 2 epiphysis, 38+12 articular surface, 38 mm standard glenosphere with standard baseplate Anesthesia: lisbeth NUNEZ Surgeon: Torres Gaviria Nipple Maker #1: Nghia Duong Estimated Blood Loss (ml): 100 Pathology: none sent Condition: stable Disposition: PACU Indications for Procedure: The patient is a 73-year-old male who presents with progressive right shoulder pain and weakness despite conservative measures. A discussion of the risks and benefits of operative intervention versus continued conservative measures was made with the patient. Specific risks of surgery to include infection, neurovascular injury, development of blood clots, fracture, possible component loosening/failure, possible need for subsequent procedures was discussed. Informed consent was obtained. Operative Findings: As below Description of Procedure: The patient was brought to the operating room, and after induction of general anesthesia was placed in a beachchair position. The bony prominences were appropriately padded. I examined the right shoulder. The right upper extremity was prepped and draped in normal fashion. The bony outlines the coracoid process, distal clavicle, and acromion were outlined with a skin marker. A pulse centimeter deltopectoral incision was made lateral to the coracoid process. Skin was incised sharply. Subcutaneous tissues were divided bluntly. Electrocautery was used for hemostasis. The cephalic vein was identified and gently retracted laterally with the deltoid. The deltopectoral was bluntly developed. Subdeltoid adhesions were then released. The self- retaining retractor was placed. The conjoined tendon was retracted medially and the deltoid laterally. The biceps was identified. Its sheath was opened. A biceps tenotomy was performed along the remaining tendon did retract distally. Pseudocapsule was excised. The subscapularis was peeled subperiosteally and tagged with #2 Ethibond suture. The head was then exposed. The shoulder was dislocated. A starting hole was made in line with the humeral shaft. The canal was reamed by hand up to size 12. There was good distal chatter. The cutting guide was then placed. I planned on 20 of retroversion. The humeral head cut was then made. The bone was removed in one fragment. Residual inferomedial osteophytes were removed flush with the [place] cortical bone. Attention was then paid towards preparing the glenoid. An anterior and posterior retractors placed. The labrum was released from the 12-6 o'clock position. Remaining biceps was removed as well. A guidepin was placed in the inferior aspect of the glenoid with the guide slightly tilting inferior. The reamer was used down to a bleeding bony surface. The central peg hole was drilled. The standard baseplate was inserted with good purchase. Inferior, superior, and posterior locking screws the appropriate length were placed. Good purchase was obtained. The 38 mm glenosphere was inserted over a guidewire. This was fully seated. Care was taken to avoid any soft tissue interposition. Attention was then paid towards preparing the proximal humerus. The appropriate broach was placed and 20 of retroversion and was fully seated. An eccentric size 2 epiphyseal reamer was utilized. A size 12 stem with a size 2 epiphysis was placed and 20 of retroversion. Trial reduction was obtained with a 38 mm + 12 articular surface. The shoulder was taken through range of motion. He was felt to be stable in flexion and extension with internal and external rotation. I felt there was adequate temple of soft tissue tension judging off the conjoined tendon. The shoulder was gently dislocated. The trial components were then removed. The final size 12 press-fit stem along with a size 2 epiphysis was fully seated. There was good rotational stability. The 38 mm + 12 articular surface was impacted. The shoulder again was gently reduced and taken through range of motion. Again it was felt to be stable in all planes. Pulsatile lavage was utilized. The subscapularis was a attached to the lesser tuberosity with #2 Ethibond suture. The deltopectoral interval was closed with interrupted 2-0 Vicryl sutures. The skin was reapproximated with 3-0 subcuticular Prolene suture. Steri-Strips were applied. A sterile dressing was applied. A sling was placed. The patient was awoken from general anesthesia and transferred to recovery room in good condition. Blood loss was estimated at 100 mL. No complications were incurred. Sponge and needle counts were correct at the end the case. Nghia COYLE assisted during the major components of the case to include exposure, glenoid and humeral preparation, implantation, and closure.
--- NOTE | 2024-03-10 10:35 | P.ANPRN ---
Procedure Note - Anesthesia - Nerve Block Performed Right Interscalene Single Time Out Performed: Yes (0706) Date of Procedure: 03/10/24 Location of Patient: PreOp Indication: Acute Post-Operative Pain, Analgesia, Dx/Pain Location (Right shoulder) Sedation Type: Sedate with meaningful contact maintained Position: Supine Catheter: None Needle Types: Pajunk Needle Gauge: 21 Ultrasound used to visualize needle placement: Yes Ultrasound used to observe medication spread: Yes Injectate: 0.5% Ropivacaine (see comment for volume) (30 cc + 4mg of decadron) Blood Aspirated: No Pain Paresthesia on Injection Noted: No Resistance on Injection: Normal Image Stored and Saved: Yes Events: Uneventful and Well Tolerated
--- NOTE | 2024-03-10 11:20 | XR ---
EXAMINATION TYPE: XR shoulder limited AP RT DATE OF EXAM: 03/10/2024 COMPARISON: NONE HISTORY: 73-year-old male status post reverse right total shoulder plasty FINDINGS: Image shows placement of reverse right total shoulder arthroplasty. Glenosphere and humeral stem comp onents of the prosthesis appear well seated without periprosthetic fracture. Alignment appears approp riate. Soft tissue and articular air relating to recent operation. IMPRESSION: Uncomplicated postoperative appearance reverse right total shoulder arthroplasty.
[2024-03-10 11:45] LABS: Glucose,Whole Blood 117 mg/dL (70-110)
[2024-03-10] MEDS: droPERidol 5 MG/2 ML VIAL IVP ONE (14:16)
[2024-03-10] MEDS: ALPRAZolam 0.25 MG TAB PO PRN (14:53)
[2024-03-10] MEDS: TAMSULOSIN 0.4 MG CAP.ER.24H PO STA (14:53)
[2024-03-10 16:31] LABS: Glucose,Whole Blood 134 mg/dL (70-110)
[2024-03-10] MEDS: SENNOSIDES-DOCUSATE SODIUM 1 EACH TAB PO PRN (18:22)
[2024-03-10] MEDS ORDERED: FIBER PO PRN (18:47)
[2024-03-10] MEDS ORDERED: NITROGLYCERIN SL TABS 0.4 MG TAB SUBLINGUAL PRN (18:47)
--- NOTE | 2024-03-10 20:13 | P.CONS ---
History of Present Illness - Reason for Consult Consult date: 03/10/24 Medical management Requesting physician: Torres Gaviria - Chief Complaint Right reverse total shoulder arthroplasty - History of Present Illness HISTORY OF PRESENT ILLNESS: 73-year-old with active medical history of benign prostatic hypertrophy with outflow obstruction, restless leg syndrome, hyperlipidemia, gastroesophageal flux syndrome, hypertension, atherosclerotic heart disease post angioplasty and stent placement of the LAD back in June 2023, who also has multiple medical problem has been having severely progressive right shoulder pain weakness and discomfort with much worsening symptoms did not improve with conservative management and is being scheduled for reverse right total shoulder arthroplasty to be done today. Patient had a surgery this morning shoulder is in sling patient's pain is under control he had a quite a difficulty of passing urine and ended up having to do straight cath for 1200 cc of urine. He is resting comfortably in bed and doing well otherwise no major complaint. REVIEW OF SYSTEMS: CONSTITUTIONAL: Well-developed no acute respiratory distress. EYES: No icterus sclerae, no conjunctivitis. EARS, NOSE, MOUTH, THROAT, and FACE: No sore throat, lymphadenopathy, carotid bruits or deformity. RESPIRATORY: No SOB cough or wheezes. CARDIOVASCULAR: No CP, Palpitation, PND, Orthopnea, or angina. GASTROINTESTINAL: No Abd pain, Nausea or vomiting, no Diarrhea or constipation, No GI Bleed, no distention or masses. GENITOURINARY: Positive BPH with urinary retention with urinary outlet syndrome. INTEGUMENT/BREAST: Negative for any muscular injury with mild osteoarthritis.. HEMATOLOGIC/LYMPHATIC: Negative for bleed or purpura. MUSCULOSKELTAL: Positive right shoulder pain and discomfort. NEURLOGICAL: No LOC, Sz or syncope, blurred vision dizziness or abnormality.. BEHAVIORAL/PSYCH: Negative. ENDOCRINE: Negative. PHYSICAL EXAMINATION: General Appearance: Alert, cooperative, no distress, appears stated age. Neck HEENT: Supple, no lymphadenopathy, no thyroid enlargement, no carotid bruits. Lungs: Clear to auscultation without crackles or wheezes no rhonchi, no deformity. Chest Wall: Chest wall normal expansion with deep inspiration no tenderness and no deformity was found on exam, no costochondral pain or discomfort. Heart: Regular rate and rhythm, S1, S2 normal, no murmur, rub or gallop. Back: Symmetric, no curvature, ROM normal, no CVA tenderness. Abdomen: Soft, non-tender, bowel sounds active all four quadrants, no masses, no organomegaly. Extremities: Extremities normal, atraumatic, no cyanosis or edema. Right shoulder incision looks fine shoulder is in sling still have slight pain and discomfort. Pulses: 2+ and symmetric. Skin: Skin color, texture, tugor normal, no rashes or lesions. Neurologic: Alert oriented x3 cranial nerves II through XII intact, no motor deficit, no abnormal balance or gait. ASSESSMENT AND PLAN: _Post right shoulder reverse arthroplasty: Resume home meds, watch patient hemodynamic status carefully, continue pain management and GI prophylaxis. _Atherosclerotic heart disease post angioplasty and stent placement of the LAD back in June 2023 patient up to now has been on antiplatelet agent which was held for 5 days before surgery will resume after surgery. He was started on Jardiance and still on secondary prevention being on metoprolol, losartan, atorvastatin and fenofibrate. _Severe GERD/hiatal hernia: Will continue proton pump inhibitor with pantoprazol e. _Hypertension: Remain on losartan 25 mg a day, metoprolol succinate 25 mg a day and low-salt diet. _Hyperlipidemia: Remain on atorvastatin 80 mg daily. Still on fenofibrate as well. _BPH with slight obstructive outlet syndrome: Remain on Flomax and additional dose will be giving today resume medication continue straight cath if residual is about 250 every shift for the next 24 hours. _Anticoagulation: Has been on Plavix and aspirin both held for surgery resume both medication as early as tomorrow. _Hyperglycemia with borderline diabetes consider as type 2 diabetes with good control remain on Jardiance 10 mg a day. _Restless leg syndrome: Remain on ropinirole on as-needed basis. _Incidental gallstone with no cholecystitis: Patient is not having any symptoms continue to treat heartburn watch for any recurrent episode of abdominal pain with diet might require gallbladder surgery. _Large kidney cyst: Has been seen Urology no intervention required repeat ultrasound in few months. _GI prophylaxis: Patient be on pantoprazole. _DVT prophylaxis: Early mobilization and knee-high FILOMENA hose. _CODE STATUS: Full code. Dr. Estrella thank you much for the consult if I can be any further help to please let me know. Past Medical History Past Medical History: Coronary Artery Disease (CAD), Chest Pain / Angina, Diabetes Mellitus, GERD/Reflux, Hearing Disorder / Deafness, Hyperlipidemia, Hypertension, Osteoarthritis (OA), Pneumonia, Prostate Disorder, Skin Disorder Additional Past Medical History / Comment(s): Tinnitis, restless leg syndrome, "found something on my rt kidney and they're going to recheck it in May.", Chest pain-"It was a discomfort running across my chest.", numerous kidney stones. Enlarged prostate. Vitiligo, "Bowel blockage.", "Pre-diabetic." History of Any Multi-Drug Resistant Organisms: None Reported, MRSA Year Discovered:: 01/2024 MDRO Source:: Nasal swab Past Surgical History: Heart Catheterization With Stent, Orthopedic Surgery Additional Past Surgical History / Comment(s): cardiac stent-x1 stent. Epideral injections in spine. Spur removed on lt. "Relived pressure from in rt eye." Cataract removal both eyes." Past Anesthesia/Blood Transfusion Reactions: No Reported Reaction, Postoperative Nausea & Vomiting (PONV) Additional Past Anesthesia/Blood Transfusion Reaction / Comm: "I came awake under anesthesia twice." Date of Last Stent Placement:: 06/11/2023 Past Psychological History: No Psychological Hx Reported Smoking Status: Never smoker Past Alcohol Use History: Daily Additional Past Alcohol Use History / Comment(s): "One shot of Daniel Torres pretty close to everyday."." no alcohol 24 hours prior to procedure. Past Drug Use History: None Reported - Past Family History Father Family Medical History: Cancer Additional Family Medical History / Comment(s): colon cancer Brother(s) Family Medical History: Cancer Additional Family Medical History / Comment(s): Throat cancer. brother with clot at base of brain. Sister(s) Family Medical History: Cancer Additional Family Medical History / Comment(s): thoat cancer. Medications and Allergies Home Medications Medication Instructions Recorded Confirmed Type ALPRAZolam [Xanax] 0.25 mg PO HS PRN 06/26/23 03/06/24 History Aspirin EC [Ecotrin Low Dose] 81 mg PO QAM 06/26/23 03/06/24 History Fenofibrate 160 mg PO MOWEFR 06/26/23 03/06/24 History Losartan [Cozaar] 25 mg PO QAM 06/26/23 03/06/24 History Tacrolimus [Tacrolimus 0.1%] 1 applic TOPICAL BID 06/26/23 03/06/24 History Tamsulosin [Flomax] 0.4 mg PO QAM 06/26/23 03/06/24 History Atorvastatin [Lipitor] 80 mg PO HS #90 tab 06/27/23 03/06/24 Rx Nitroglycerin Sl Tabs [Nitrostat] 0.4 mg SUBLINGUAL Q5M PRN #100 tab 06/27/23 03/06/24 Rx Aleve (Unknown Dose) 1 dose PO Q8H PRN 03/06/24 History Clopidogrel [Plavix] 75 mg PO QAM 03/06/24 03/06/24 History Empagliflozin [Jardiance] 10 mg PO QAM 03/06/24 03/06/24 History Fiber Powder(Unknown Dose) 1 dose PO BID PRN 03/06/24 History Metoprolol Succinate (ER) [Toprol 25 mg PO HS 03/06/24 03/06/24 History XL] Pantoprazole [Protonix] 40 mg PO QA 03/06/24 03/06/24 History Allergies Allergy/AdvReac Type Severity Reaction Status Date / Time codeine AdvReac Nausea Verified 03/06/24 08:22 morphine AdvReac Nausea Verified 03/06/24 08:22 Physical Exam Vitals: Vital Signs Temp Pulse Resp BP Pulse Ox 03/10/24 12:58 87 16 110/64 92 L 03/10/24 12:30 87 18 112/60 91 L 03/10/24 12:00 76 16 104/50 98 03/10/24 11:30 74 16 100/48 98 03/10/24 11:00 71 16 98/56 97 03/10/24 10:45 69 16 100/52 97 03/10/24 10:30 73 16 112/59 96 03/10/24 10:20 92 16 139/63 97 03/10/24 10:05 97.5 F L 82 16 124/65 96 03/10/24 07:15 44 L 16 110/58 96 03/10/24 06:30 97.8 F 50 L 16 133/60 97 Intake and Output 03/10/24 03/10/24 03/10/24 06:59 14:59 22:59 Intake Total 700 1601 Output Total 400 1020 Balance 700 1201 -1020 Intake: IV 700 1601 Output: Urine 300 1020 Straight 1020 Estimated Blood Loss 100 Other: Voiding Method Toilet # Voids 1 Weight 79.9 kg 79.9 kg Results Labs: Abnormal Lab Results - Last 24 Hours (Table) 03/10/24 03/10/24 03/10/24 Range/Units 06:30 11:44 16:29 PT 13.2 H (10.0-12.5) sec INR 1.2 H (<1.2) POC Glucose (mg/dL) 117 H 134 H (70-110) mg/dL
[2024-03-10] MEDS: METOPROLOL SUCCINATE (ER) 25 MG TAB.ER.24H PO SCH (21:22)
[2024-03-10] MEDS: ATORVASTATIN 80 MG TAB PO SCH (21:22)
[2024-03-10] MEDS: TACROLIMUS TOPICAL SCH (21:23)
[2024-03-10 22:05] LABS: Glucose,Whole Blood 152 mg/dL (70-110)
[2024-03-11] MEDS: ALPRAZolam 0.25 MG TAB PO PRN (00:02)
[2024-03-11] MEDS: HYDROcodone/APAP 5-325MG 1 EACH TAB PO PRN ×2 (01:18→09:43)
[2024-03-11] MEDS: HYDROmorphone 0.5 MG/0.5 ML SYRINGE IVP PRN (06:17)
[2024-03-11] MEDS: PANTOPRAZOLE 40 MG TABLET PO SCH (06:17)
[2024-03-11 06:21] LABS: Glucose,Whole Blood 120 mg/dL (70-110)
[2024-03-11 08:01] VITALS: BP 135/63; PULSE 62; RESP 13; TEMP 97.9
[2024-03-11] MEDS ORDERED: ASPIRIN 81 MG PO SCH (09:00)
[2024-03-11] MEDS ORDERED: CLOPIDOGREL 75 MG TAB PO SCH (09:00)
[2024-03-11] MEDS: TAMSULOSIN 0.4 MG CAP.ER.24H PO SCH (09:41)
[2024-03-11] MEDS: FENOFIBRATE 160 MG TAB PO SCH (09:41)
[2024-03-11] MEDS: CLOPIDOGREL 75 MG TAB PO SCH (09:41)
[2024-03-11] MEDS: LOSARTAN 25 MG TAB PO SCH (09:41)
[2024-03-11] MEDS: DAPAGLIFLOZIN PROPANEDIOL 5 MG TABLET PO SCH (09:41)
[2024-03-11] MEDS: ASPIRIN 81 MG PO SCH (09:41)
--- NOTE | 2024-03-11 10:02 | P.DS ---
Providers Date of admission: 03/10/2024 Expected date of discharge: 03/11/24 Attending physician: Torres Gaviria Consults: 03/10/24 09:52 Consult Physician Routine Consulting Provider: Tee Zaldivar Reason/Comments: medical management s/p reverse right total shoulder arthroplasty Do you want consulting provider notified?: Yes Primary care physician: Tee Zaldivar Hospital Course: Date of admission: 03/10/2024 Date of discharge: 03/11/2024 Admission diagnosis: Right retracted chronic rotator cuff tear/rotator cuff arthropathy Discharge diagnosis: Same Attending physician: Dr. Gaviria Surgical procedures: Reverse right total shoulder arthroplasty Brief history: Patient is a 73-year-old male with a history of Right retracted chronic rotator cuff tear/rotator cuff arthropathy. At this point patient has failed conservative treatment measures and has opted to proceed with a elective reverse right total shoulder arthroplasty. Hospital course: Details of patient's surgery can be found in operative report. Patient tolerated the procedure well and was subsequently transported to orthopedic floor. Patient's orthopeidc and medical care was provided daily. Patient had daily laboratory tests performed for evaluation of overall blood counts. Patient had daily physical therapy to include strengthening range of motion as well as education with walker ambulation. Patient was treated with Plavix and aspirin for their postoperative DVT prophylaxis during their inpatient stay. Patient was noted to have a relatively uneventful postoperative course. Patient reported satisfactory pain control with oral pain medications by postoperative day 1. Patient showed satisfactory progress with physical therapy. Patient moved steadily through the program and had no difficulty meeting the goals by postoperative day 1. Given patient's otherwise satisfactory course and having met physical therapy goals, plan is to discharge patient home on postoperative day 1. Discharge condition/disposition: Patient will be discharged home in stable condition. Discharge medications: Instructions are given on resumption of patient's normal daily medications per primary care recommendation, in addition patient will be prescribed [place]; senna; resume aspirin and Plavix at home. Orthopedic Discharge Instructions: 1. Wound care and infection precautions, keep incision dry and covered while showering, no lotions, creams, moisturizers. No soaking, pools, hot tubs. Do not scrub over incision. 2. Nonweightbearing right upper extremity until follow-up. 3. Ice when necessary. Do not exceed 20 minutes per hour with ice pack. 4. Utilize sling to the right upper extremity until seen at first follow up appointment. 5. Pain meds and anticoagulants per prescription. 6. Pain medication has potential to cause constipation. Increase oral fluid and fiber intake. Contact primary care provider if you have not had a bowel movement within 48 hours after discharge. 7. No anti-inflammatory medication until discussed at first post operative visit, this including Motrin, Aleve, Mobic, Diclofenac. 8. Follow up in office at 2 weeks postop with Arya Luna PA-C / Nghia Duong PA-C 9. Follow up with your primary care doctor 7-10 days after discharge. 10. Contact [facility] with any questions, . Keep incision clean, dry, intact. While showering, cover Steri-Strips/incision with Saran wrap. Keep Steri-Strips on until follow-up appointment in office in 2 weeks Assessment: Right retracted chronic rotator cuff tear/rotator cuff arthropathy Procedures: Reverse right total shoulder arthroplasty Patient Condition at Discharge: Good Plan - Discharge Summary Discharge Rx Participant: No New Discharge Prescriptions: No Action ALPRAZolam [Xanax] 0.25 mg PO HS PRN PRN Reason: Anxiety Tamsulosin [Flomax] 0.4 mg PO QAM Tacrolimus [Tacrolimus 0.1%] 1 applic TOPICAL BID Atorvastatin [Lipitor] 80 mg PO HS #90 tab Metoprolol Succinate (ER) [Toprol XL] 25 mg PO HS Clopidogrel [Plavix] 75 mg PO QAM Empagliflozin [Jardiance] 10 mg PO QAM Losartan [Cozaar] 25 mg PO QAM Fenofibrate 160 mg PO MOWEFR Aspirin EC [Ecotrin Low Dose] 81 mg PO QAM Nitroglycerin Sl Tabs [Nitrostat] 0.4 mg SUBLINGUAL Q5M PRN #100 tab PRN Reason: Chest Pain Pantoprazole [Protonix] 40 mg PO QAM Fiber Powder(Unknown Dose) 1 dose PO BID PRN PRN Reason: Vitiligo Aleve (Unknown Dose) 1 dose PO Q8H PRN PRN Reason: Pain Discharge Medication List ALPRAZolam [Xanax] 0.25 mg PO HS PRN 06/26/23 [History] Aspirin EC [Ecotrin Low Dose] 81 mg PO QAM 06/26/23 [History] Fenofibrate 160 mg PO MOWEFR 06/26/23 [History] Losartan [Cozaar] 25 mg PO QAM 06/26/23 [History] Tacrolimus [Tacrolimus 0.1%] 1 applic TOPICAL BID 06/26/23 [History] Tamsulosin [Flomax] 0.4 mg PO QAM 06/26/23 [History] Atorvastatin [Lipitor] 80 mg PO HS #90 tab 06/27/23 [Rx] Nitroglycerin Sl Tabs [Nitrostat] 0.4 mg SUBLINGUAL Q5M PRN #100 tab 06/27/23 [Rx] Aleve (Unknown Dose) 1 dose PO Q8H PRN 03/06/24 [History] Clopidogrel [Plavix] 75 mg PO QAM 03/06/24 [History] Empagliflozin [Jardiance] 10 mg PO QAM 03/06/24 [History] Fiber Powder(Unknown Dose) 1 dose PO BID PRN 03/06/24 [History] Metoprolol Succinate (ER) [Toprol XL] 25 mg PO HS 03/06/24 [History] Pantoprazole [Protonix] 40 mg PO QAM 03/06/24 [History] Follow up Appointment(s)/Referral(s): Nghia Duong, VICKI [PHYSICIAN SAFETY SPEC] - 03/23/24 2:00 pm Activity/Diet/Wound Care/Special Instructions: Orthopedic Discharge Instructions: 1. Wound care and infection precautions, keep incision dry and covered while showering, no lotions, creams, moisturizers. No soaking, pools, hot tubs. Do not scrub over incision. 2. Nonweightbearing right upper extremity until follow-up. 3. Ice when necessary. Do not exceed 20 minutes per hour with ice pack. 4. Utilize sling to the right upper extremity until seen at first follow up appointment. 5. Pain meds and anticoagulants per prescription. 6. Pain medication has potential to cause constipation. Increase oral fluid and fiber intake. Contact primary care provider if you have not had a bowel movement within 48 hours after discharge. 7. No anti-inflammatory medication until discussed at first post operative visit, this including Motrin, Aleve, Mobic, Diclofenac. 8. Follow up in office at 2 weeks postop with Arya Luna PA-C / Nghia Duong PA-C 9. Follow up with your primary care doctor 7-10 days after discharge. 10. Contact [facility] with any questions, . Keep incision clean, dry, intact. While showering, cover Steri-Strips/incision with Saran wrap. Keep Steri-Strips on until follow-up appointment in office in 2 weeks
[2024-03-11 10:23] LABS: Basophils % (A) 0 %; Eosinophils % (A) 0 %; HCT 43.6 % (39.0-53.0); HGB 14.6 gm/dL (13.0-17.5); Lymphocytes # (A) 1.3 k/uL (1.0-4.8); Lymphocytes % (A) 9 %; MCH 31.1 pg (25.0-35.0); MCHC 33.4 g/dL (31.0-37.0); Mean Platelet Volume 8.8; Monocytes # (A) 1.5 k/uL (0-1.0); Monocytes % (A) 11 %; Neutrophils # (A) 11.1 k/uL (1.3-7.7); Neutrophils % (A) 78 %; Platelet Count 167 k/uL (150-450); RBC 4.69 m/uL (4.30-5.90); RDW 12.5 % (11.5-15.5); WBC 14.2 k/uL (3.8-10.6)
--- NOTE | 2024-03-11 11:20 | P.PN ---
Subjective Progress Note Date: 03/11/24 Principal diagnosis: Right retracted chronic rotator cuff tear/rotator cuff arthropathy Patient was seen at bedside this morning sitting up in chair. Patient says he has urinated since surgery without issue. Sling is present to right upper extremity with dressing present over right shoulder. Patient says his will be able to help him out once he goes home. Patient says he normally takes aspirin and Plavix at home. Patient says his pain increased a little bit last night when the block wore off. Patient says he has been walking around the room a little bit on his own without issue. Patient states most of the pain is located directly over the shoulder and denies any radiation of pain. Patient denies any other orthopedic complaints at this time. Objective - Vital Signs Vital signs: Vital Signs Temp 97.9 F 03/11/24 07:36 Pulse 62 03/11/24 07:36 Resp 13 03/11/24 07:36 BP 135/63 03/11/24 07:36 Pulse Ox 96 03/11/24 07:36 FiO2 Intake & Output 03/10/24 03/11/24 03/11/24 18:59 06:59 18:59 Intake Total 1601 Output Total 1420 800 Balance 181 -800 Weight 79.9 kg Intake: IV 1601 Output: Urine 1320 800 Straight 1020 800 Estimated Blood Loss 100 Other: Voiding Method Toilet Toilet Urinal # Voids 1 - Exam Right shoulder: Incision is clean, dry, and intact. Sling is present to right upper extremity. the bulky dressing is in good condition. There is minimal soft tissue swelling and ecchymosis surrounding the medial and lateral aspects of the incision. Calf is soft, no tenderness with palpation. Plantar flexion, dorsiflexion, EHL, FHL are intact. Sensory exam to light touch throughout the extremity is intact, dorsal pedis pulses 2+. - Labs CBC & Chem 7: 03/11/24 09:16 Labs: Abnormal Lab Results - Last 24 Hours (Table) 03/10/24 03/10/24 03/10/24 Range/Units 11:44 16:29 22:04 POC Glucose (mg/dL) 117 H 134 H 152 H (70-110) mg/dL 03/11/24 Range/Units 06:19 POC Glucose (mg/dL) 120 H (70-110) mg/dL Assessment and Plan Assessment: Right retracted chronic rotator cuff tear/rotator cuff arthropathy - Postop day 1 status post reverse right total shoulder arthroplasty Plan: 1. Right retracted chronic rotator cuff tear/rotator cuff arthropathy -reverse right total shoulder arthroplasty form yesterday, 03/10/2024. Patient stable at bedside this morning with sling and dressing present to right upper extremity. Pain under control with [place]. Discharge home today 2. Appreciate medical management 3. Pain management -[place] 4. DVT prophylaxis -Plavix and aspirin 5. GI prophylaxis -senna 6. PT/OT -nonweightbearing right upper extremity. Maintain right upper extremity in sling. 7. Encourage incentive spirometer use 8. Discharge planning -discharge home today Time with Patient: Less than 30
[2024-03-11 11:22] LABS: Glucose,Whole Blood 111 mg/dL (70-110)
== END 2024-03-11 14:13 | disposition home or self-care (01) ==
LOC: OR 05:40 → 4SSUR 13:50 → OR 03-11 14:13
PROVIDERS: ATTEND Orthopaedic Surgery
DX: M75.121 Complete rotator cuff tear or rupture of right shoulder, not specified as traumatic (principal); M75.101 Unspecified rotator cuff tear or rupture of right shoulder, not specified as traumatic; M19.90 Unspecified osteoarthritis, unspecified site; K21.9 Gastro-esophageal reflux disease without esophagitis; I25.10 Atherosclerotic heart disease of native coronary artery without angina pectoris; I10 Essential (primary) hypertension; N40.0 Benign prostatic hyperplasia without lower urinary tract symptoms; G25.81 Restless legs syndrome; E78.5 Hyperlipidemia, unspecified; E11.9 Type 2 diabetes mellitus without complications; G89.18 Other acute postprocedural pain; Z79.84 Long term (current) use of oral hypoglycemic drugs; Z79.02 Long term (current) use of antithrombotics/antiplatelets; Z88.5 Allergy status to narcotic agent; Z95.5 Presence of coronary angioplasty implant and graft
CPT/HCPCS: 64415; 85025; 85610; 73020; 23472; C1776; J2250; J3370; J1100; J0690 ×3; J2405; J1170

== ENCOUNTER → 2024-05-16 | Outpatient (CLI) | payer MEDICARE ==
--- NOTE | 2024-06-15 13:50 | MR ---
Site ID synapse default Patient Marcelo Woods A ID [id number] Age/Gender: 74Y, M Order # N/A Procedure MRI KIDNEY W/WO CONTRAST Date 05/16/2024 12:23:30 PM EXAMINATION TYPE: MR kidney wo/w con DATE OF EXAM: 05/27/2024 6:47 PM INDICATION: Patient age: Male; 74 year old; Reason for study: Neoplasm of uncertain behavior of right kidney. COMPARISON: CT abdomen and pelvis 12/10/2023 TECHNIQUE: Multiplanar multi-sequence imaging was performed without and with IV contrast. The patien t was given 8 ccs of Gadavist intravenously and dynamic imaging was performed. Post IV contrast subtr action images were also submitted for review. FINDINGS: LOWER CHEST: No gross irregularity. ABDOMEN Liver: Multiple T2 hyperintense thin-walled cysts identified within the liver. Largest is identified in central portion measuring up to 10.8 cm. This demonstrates peripheral intrinsic T1 hyperintense si gnal without enhancement on subtraction imaging. The remaining cysts demonstrate no T1 hyperintense s ignal are enhancement. Gallbladder and Bile ducts: Cholelithiasis. Large hepatic cyst has mass effect upon the gallbladder. Pancreas: Unremarkable. Spleen: Unremarkable. Adrenal glands: Unremarkable. Kidneys: No hydronephrosis. Thin-walled T2 hyperintense left superior pole 4.9 cm simple cyst. [employer] ior lateral right mid kidney exophytic 1.6 cm lesion identified. This demonstrates intermediate T2 si gnal intensity with restricted diffusion identified. Demonstrates intrinsic T1 hyperintensity (series 801, image 25). Stomach and Bowel: Unremarkable as visualized. Peritoneum: No evidence of pneumoperitoneum, free fluid, or adenopathy. Vasculature: Unremarkable. No aortic aneurysm. Abdominal wall: Unremarkable. Musculoskeletal: The osseous structures appear intact. IMPRESSION: 1. Exophytic right mid kidney 1.6 cm lesion with characteristics most consistent with a proteinaceou s/hemorrhagic cyst. Bosniak type II cyst. No enhancement identified. 2. Large hepatic 10.7 m cyst with some peripheral intrinsic T1 hyperintense signal likely representi ng hemorrhage/protein. No enhancement identified on subtraction imaging. Additional multiple simple a ppearing hepatic cysts. 3. Cholelithiasis.
== END | disposition home or self-care (01) ==
LOC: RADMRIMAIN 05-15 13:00
PROVIDERS: ATTEND Urology
DX: D41.01 Neoplasm of uncertain behavior of right kidney
CPT/HCPCS: 74183

== ENCOUNTER → 2024-12-24 | Outpatient (CLI) | payer MEDICARE ==
--- NOTE | 2024-12-24 13:39 | MR ---
EXAMINATION TYPE: MR brain wo/w con DATE OF EXAM: 12/24/2024 1:22 PM COMPARISON: 11/25/2024 CLINICAL INDICATION: Male, 74 years old with history of Z86.73 HX OF TIA; PHH, TIA, Hx RT Kidney canc er TECHNIQUE: Multi planar, multi sequence imaging was performed through the brain including: T1, T2, In version recovery, susceptibility weighted imaging and gradient echo imaging and Diffusion weighted im aging. The patient was then given intravenous contrast and multi planar, T1 fat-saturation images wer e obtained. IV Contrast: 8 mL Gadobutrol FINDINGS: The ortega-white junctions, ventricular system, basal cisterns appear unremarkable. Diffusion-weighted imaging shows no evidence of restricted diffusion to suggest acute/subacute infarct. Intracranial ar terial flow voids are maintained. Midline structures show no abnormality. Scattered foci of high T2 s ignal intensity are seen within the periventricular white matter. The susceptibility weighted images do not reveal any evidence for micro-hemorrhage. After administration of gadolinium, no abnormal enha ncement is seen. The bone marrow signal is within normal limits. Paranasal sinuses and mastoid air cells: No significant paranasal sinus disease. Visualized orbits: Bilateral aphakia IMPRESSION: 1. No evidence for metastatic disease. No evidence of intracranial mass, acute/subacute infarct, or a bnormal enhancement. 2. Nonspecific white matter changes, likely related to small vessel ischemic disease. [facility], , 12/24/2024 1:36 PM
== END | disposition home or self-care (01) ==
LOC: RADMRIMAIN 12:01
PROVIDERS: ATTEND Internal Medicine Geriatric Medicine
DX: R90.82 White matter disease, unspecified (principal); Z86.73 Personal history of transient ischemic attack (TIA), and cerebral infarction without residual deficits; Z85.528 Personal history of other malignant neoplasm of kidney
CPT/HCPCS: 70553; A9585

== ENCOUNTER → 2025-01-28 | Outpatient (CLI) | payer MEDICARE ==
--- NOTE | 2025-01-29 08:36 | XR ---
EXAMINATION TYPE: XR chest 2V DATE OF EXAM: 01/28/2025 5:45 PM COMPARISON: Chest radiographs from 11/25/2024 TECHNIQUE: XR chest 2V Frontal and lateral views of the chest. CLINICAL INDICATION:Male, 74 years old with history of J20.9; FINDINGS: Lungs/Pleura: There is no evidence of pleural effusion, focal consolidation, or pneumothorax. Pulmonary vascularity: Unremarkable. Heart/mediastinum: Cardiomediastinal silhouette is unremarkable. Atherosclerotic calcifications are seen in the aorta. Musculoskeletal: Multiple level degenerative disc disease changes seen throughout the spine. Postsurg ical changes are reversed total right shoulder arthroplasty. IMPRESSION: No acute cardiopulmonary disease/process. [facility], , 01/29/2025 8:33 AM
== END | disposition home or self-care (01) ==
LOC: RADXRMAIN 17:15
PROVIDERS: ATTEND Nurse Practitioner Family
DX: J20.9 Acute bronchitis, unspecified (principal); I70.0 Atherosclerosis of aorta
CPT/HCPCS: 71046

== ENCOUNTER → 2025-04-08 | Day surgery (SDC) | payer MEDICARE ==
[~2025-04-08] MED LIST changes: +ALPRAZolam 0.25 MG TAB PO PRN; +ALPRAZolam 0.5 MG TAB PO PRN; +ASPIRIN 325 MG TAB PO ONE; +NITROGLYCERIN SL TABS 0.4 MG TAB SUBLINGUAL PRN; +RX INFO: IV CONTRAST WAS GIVEN 1 EACH MISC MISCELLANE PRN; +SODIUM CHLORIDE 0.9% 1,000 ML IV SCH; +SODIUM CHLORIDE 0.9% 1,000 ML in EMPTY BAG 1 BAG IV SCH; -TRANEXAMIC 1,000 MG/100ML-NACL 1,000 MG in SALINE 1 100ML.BAG IVPB PRN
[2025-04-08] MEDS: IV FLUID CONTINUATION 1,000 ML IV ONE ×2 (11:54→12:30)
[2025-04-08 12:22] LABS: Basophils # (A) 0.06 10*3/uL (0.00-0.10); Basophils % (A) 0.8 %; Eosinophils # (A) 0.46 10*3/uL (0.04-0.35); Eosinophils % (A) 6.4 %; HCT 45.0 % (39.6-50.0); HGB 15.5 g/dL (13.0-17.0); Lymphocytes # (A) 1.07 10*3/uL (0.90-5.00); Lymphocytes % (A) 14.9 %; MCH 31.4 pg (27.0-32.0); MCHC 34.4 g/dL (32.0-37.0); MCV 91.1 fL (80.0-97.0); Monocytes # (A) 0.71 10*3/uL (0.20-1.00); Monocytes % (A) 9.9 %; Neutrophils # (A) 4.83 10*3/uL (1.80-7.70); Neutrophils % (A) 67.4 %; Platelet Count 146 10*3/uL (140-440); RBC 4.94 10*6/uL (4.40-5.60); RDW 12.4 % (11.5-14.5); WBC 7.17 10*3/uL (4.50-10.00)
[2025-04-08 12:38] LABS: African American GFR (CKD) >90 (>60 ml/min/1.73 sqM); Anion Gap 7 mmol/L; Blood Urea Nitrogen 14 mg/dL (9-20); Calcium 9.4 mg/dL (8.4-10.2); Carbon Dioxide 28 mmol/L (22-30); Chloride 103 mmol/L (98-107); Glucose 97 mg/dL (74-99); Non-African American GFR(CKD) 89 (>60 ml/min/1.73 sqM); Potassium 4.3 mmol/L (3.5-5.1); Sodium 138 mmol/L (137-145)
[2025-04-08] MEDS: HEPARIN SODIUM,PORCINE (1 ML) 2,500 UNIT in SODIUM CHLORIDE 0.9% 250 ML IRRIGATION PRN (14:34)
[2025-04-08] MEDS: HEPARIN SODIUM,PORCINE 10,000 UNIT in SODIUM CHLORIDE 0.9% 1,000 ML IRRIGATION PRN (14:34)
[2025-04-08] MEDS: fentaNYL (PF) 50 MCG/ML 2 ML AMP IVP ONE (14:45)
[2025-04-08] MEDS: MIDAZOLAM 2 MG/2 ML VIAL IVP ONE ×2 (14:45→14:50)
[2025-04-08] MEDS: LIDOCAINE 1% INJ 10MG/ML (20 ML MDV) SQ ONE (14:46)
[2025-04-08] MEDS: VERAPAMIL SYRINGE (5 MG/10 ML) INTRAARTER ONE (14:47)
[2025-04-08] MEDS: HEPARIN SODIUM 1,000 UN/ML (10ML VL) IVP ONE (14:50)
[2025-04-08] MEDS: IOPAMIDOL-370 100ML BTL INJ ONE (15:07)
--- NOTE | 2025-04-08 15:18 | P.PCN ---
Date of Procedure: 04/08/25 Operative Findings: CARDIAC CATHETERIZATION PERFORMING PHYSICIAN: Deon Maharaj MD, RPVI PROCEDURE PERFORMED: 1. Selective right and left coronary angiogram and IFR of the RCA 2. Left heart catheterization 3. Ultrasound-guided access of the right radial artery INDICATION: Chest discomfort concerning for unstable angina COMPLICATION: None APPROACH: Right radial artery LEVEL OF SEDATION: Moderate with a sedation length of 22 minutes PROCEDURE DESCRIPTION: After obtaining an informed consent, the patient was brought to cardiac prosthetic lab technician. Local anesthesia was performed using lidocaine subcutaneously. The right radial artery was cannulated using Seldinger technique, under ultrasound guidance, the guidewire passed easily, following that we advanced a 5-Australian sheath dilator assembly, the wire and dilator were removed and sheath was flushed. Following that, 2 mg of verapamil along with 5000 unit heparin were given. Selective right and left coronary angiogram using a 5-Australian JR4 and JL 3.5 catheters. Following that we did left heart catheterization using 5-Australian pigtail cathete r. After that I decided to do an IFR of the RCA. After zeroing the Dobler wire and equalized in between the Dobler wire and guiding catheter which was an AL 0.75 guiding catheter the RCA was engaged and subsequently wired using the Dobler wire with IFR came to be at 0.90. The procedure was completed there was no complication. SELECTIVE CORONARY ANGIOGRAM: The right coronary artery: Large caliber vessel and calcified vessel with intermediate to severe disease involving the proximal portion documented to be nonflow-limiting by Doppler wire and severe disease involving the PDA branch of the RCA treated medically at this point Left main: Has mild disease only The left circumflex: Large caliber vessel nondominant vessel with mild to moderate disease with no evidence of high-grade stenosis The left anterior descending artery: The stent in the proximal LAD is patent with intermediate to severe disease in a diffuse pattern involving the mid LAD I will treat medically at this point HEMODYNAMICS: LVEDP was about 12 mmHg with no significant gradient across aortic valve CONCLUSION: 1. Patent stent in the proximal LAD. Intermediate to severe disease involving the mid LAD I will treat medically at this point 2. Intermediate to severe disease involving the proximal RCA documented to be nonflow-limiting by Doppler wire POSTPROCEDURE MANAGEMENT: Medical treatment at this point Follow-up with the patient
[2025-04-08 15:41] VITALS: RESP 14
[2025-04-08 16:17] VITALS: PULSE 60
[2025-04-08 16:25] VITALS: TEMP 98.2
[2025-04-08 19:18] VITALS: BP 126/68
== END ==
LOC: CATHCVL 11:10
PROVIDERS: ATTEND Internal Medicine Interventional Cardiology
DX: I25.110 Atherosclerotic heart disease of native coronary artery with unstable angina pectoris (principal); E78.5 Hyperlipidemia, unspecified; I10 Essential (primary) hypertension; Z95.5 Presence of coronary angioplasty implant and graft; Z79.82 Long term (current) use of aspirin; Z79.899 Other long term (current) drug therapy
CPT/HCPCS: 99152; 93458; 93799; 80048; 85025; C1887; C1769 ×2; C1894; J2250; J1644 ×3; J2003; J3010; Q9967